=== PATIENT | female | born 1960 | race Caucasian/White ===

== ENCOUNTER 2025-06-29 13:25 | Outpatient (CLI) | payer OTHER, SELFPAY | END 2025-06-29 13:26 | disposition home or self-care (01) | LOC: SLEEP 13:30 | PROVIDERS: Referring Provider Family Medicine; Visit Provider Internal Medicine Pulmonary Disease | DX: G47.30 Sleep apnea, unspecified (principal) | CPT/HCPCS: G0399 ==